=== PATIENT | male | born 1945 | race Caucasian/White ===

== ENCOUNTER → 2017-01-26 | Outpatient (CLI) | payer MEDICARE, BC ==
[~2017-01-26] MED LIST: ALEVE 220MG220 MG; ALEVE 220MG220 MG PO; AMOXICILLIN 8751 TAB PO; CO Q-1010 M1 PO; COLACE 100100 MG/CAP PO; COMPLETE SENIOR1 TA1 PO; COUMADIN 5MG5 MG/TAB PO; COUMADIN4 MG PO; FLAGYL500 MG PO; GLUCOSAMINE MSM1 TAB PO; LEVAQUIN 750MG750 M1 PO; LORTAB 7.5/5001 TAB PO; MILK OF MA400 MG/52 PO; NORCO 325 MG-51 TAB PO; PRAVACHOL 40MG40 MG PO; PRILOSEC 20MG20 MG PO; PROVENTIL0.09 MG/A1 IH; TYLENOL 325MG325 MG PO; XALATAN EYE DROPS OU; ZESTRIL 10MG10 MG PO; ZYRTEC 10MG10 MG PO
== END ==
LOC: COL.RAD 08:00
DX: N28.1 Cyst of kidney, acquired (principal); R10.84 Generalized abdominal pain; Z90.79 Acquired absence of other genital organ(s); J98.11 Atelectasis
CPT/HCPCS: Q9967

== ENCOUNTER → 2018-02-07 | Outpatient (CLI) | payer MEDICARE, BC | LOC: COL.VAS 12:30 | DX: I51.7 Cardiomegaly (principal) ==

== ENCOUNTER 2018-12-19 11:40 | Emergency (ER) | payer MEDICARE, BC ==
[~2018-12-19] VITALS: Ht 175.3 cm; Wt 81.8 kg
[~2018-12-19 11:40] MED LIST changes: -COUMADIN4 MG PO
[2018-12-19 11:44] VITALS: TEMP 98.8
[2018-12-19 12:06] LABS: BASO # 0.1 (0.0-0.2); BASO % 1.6 % (0.0-2.0); EOS # 0.2 (0.0-0.7); EOS % 4.2 % (0-4.0); GRAN # 1.9 (1.4-6.5); GRAN % 49.4 % (42.2-75.2); HEMATOCRIT 45.5 % (42.0-52.0); LYMPH % 26.8 % (20.0-51.0); MEAN CELL VOLUME 87 fl (80.0-100.0); MEAN CORPUSCULAR HEMOGLOBIN 29 pg (27.0-31.0); MEAN CORPUSCULAR HGB CONC 33 g/dl (33.0-37.0); MEAN PLATELET VOLUME 9.3 fl (7.4-10.4); MONO # 0.7 (0.1-0.6); MONO % 17.7 % (1.7-9.3); PLATELET COUNT 199 K/mm3 (130-400); RED BLOOD COUNT 5.25 M/mm3 (4.20-5.60); REDCELL DISTRIBUTION WIDTH-CV 13.6 % (11.5-14.5)
[2018-12-19 12:15] LABS: INR 2.7 (0.8-3.0); PROTHROMBIN TIME 30.5 SECONDS (9.7-12.8)
[2018-12-19] MEDS ORDERED: CLEOCIN HC150 MG/CAP PO (13:08)
[2018-12-19 14:58] VITALS: BP 151/87; PULSE 57
== END 2018-12-19 15:02 | disposition home or self-care (01) ==
LOC: COL.ER 11:40
PROVIDERS: Emergency Medicine
DX: R04.0 Epistaxis (principal); Z79.01 Long term (current) use of anticoagulants; Z86.711 Personal history of pulmonary embolism

== ENCOUNTER → 2021-11-14 | Outpatient (CLI) | payer MEDICARE, BC ==
[~2021-11-14] MED LIST changes: +CLEOCIN HC150 MG/CAP PO
== END ==
LOC: COL.RAD 15:13
DX: J98.11 Atelectasis (principal); M54.9 Dorsalgia, unspecified; Z86.711 Personal history of pulmonary embolism
CPT/HCPCS: Q9967

== ENCOUNTER → 2021-11-25 | Outpatient (CLI) | payer MEDICARE, BC | LOC: COL.RAD 13:54 | DX: N28.1 Cyst of kidney, acquired (principal); K57.30 Diverticulosis of large intestine without perforation or abscess without bleeding | CPT/HCPCS: Q9967 ==

== ENCOUNTER → 2024-01-24 | Outpatient (CLI) | payer MEDICARE, BC | LOC: COL.RAD 06:38 | DX: N28.1 Cyst of kidney, acquired (principal); K57.30 Diverticulosis of large intestine without perforation or abscess without bleeding; K86.9 Disease of pancreas, unspecified ==

== ENCOUNTER → 2024-01-29 | Outpatient (CLI) | payer MEDICARE, BC | LOC: COL.RAD 07:07 | DX: M51.16 Intervertebral disc disorders with radiculopathy, lumbar region (principal); M43.16 Spondylolisthesis, lumbar region; M47.27 Other spondylosis with radiculopathy, lumbosacral region ==